=== PATIENT | male | born 1965 | race Caucasian/White ===

== ENCOUNTER 2019-01-04 17:04 | Emergency (ER) | payer BC ==
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
--- NOTE | 2019-01-05 05:25 | CR ---
DATE OF SERVICE: 01/04/19 CLINICAL DATA: Right anterior superior iliac spine tenderness. AP PELVIS: There are surgical changes involving the left pelvis and acetabulum. There are mild osteoarthritic changes involving both hip joints, left greater than right. No acute abnormalities. [id number] [facility]
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
== END 2019-01-04 19:07 | disposition home or self-care (01) ==
LOC: LB.ED 17:04
DX: S43.101A Unspecified dislocation of right acromioclavicular joint, initial encounter (principal); S30.0XXA Contusion of lower back and pelvis, initial encounter; S00.12XA Contusion of left eyelid and periocular area, initial encounter; S00.11XA Contusion of right eyelid and periocular area, initial encounter; S09.90XA Unspecified injury of head, initial encounter; H11.32 Conjunctival hemorrhage, left eye; M25.542 Pain in joints of left hand; Y04.8XXA Assault by other bodily force, initial encounter
CPT/HCPCS: 70450; 72170; 73030-RT; 73140-FA; 99284-25